=== PATIENT | male | born 1975 | race Caucasian/White ===

== ENCOUNTER 2017-10-14 10:30 | Outpatient (RCR) | payer MEDICAID, SELFPAY ==
--- NOTE | 2017-09-25 15:56 | PTTR_ITS ---
DATE: 09/25/17 SUBJECTIVE: Braulio reports he did fine after his last P.T. session. Continues to stay very busy outside of the clinic. He is expecting to have an extremely busy weekend with work and ball tournaments. Did request to skip the stationary bike today OBJECTIVE: Manual therapy: (50227n2). Mobs of the right patella as well as tibiofemoral joint mobs while in the supine position. Soft tissue stretching of the right hamstrings, hip flexors and quadriceps while in the Eulogio test position. TFM to the medial joint line and soft tissue stretching of the right IT band and piriformis musculature. LE distraction via leg pulls was also performed on the right while in supine. Therapeutic procedures (58303a2). * x See flow sheet: focus was on strengthening of the right LE and hip stabilizers. * Verbal and tactile cues were provided throughout today's session for proper positioning and isolation of specific muscles. * Did incorporate side lying clamshell as well as bridging with adductor squeeze while maintaining core stabilization. * * Ended with KT tape to the medial joint line utilizing X formation and applied cryotherapy x10 min. with leg resting on a wedge pillow at no charge. Direct treatment time: 50 min. Total treatment time: 60 min. SG/gc
--- NOTE | 2017-09-30 10:30 | PTTR_ITS ---
DATE: 09/30/17 SUBJECTIVE: Patient reports he played in a softball tournament this weekend and it did not bother his knee or ankle at all. He has no pain in the knee upon arrival. States he has been completing HEP plus more exercises at home. States he does both modified and forearm planks everyday. He states he didn t notice any difference with the kineseotape applied last session. He is feels like he is getting stronger. Has been having some lower back pain that is the worst in the morning when he first gets up. OBJECTIVE: Manual therapy: (83022a3). Performed right patellafemoral mobilizations all directions. Performed right hamstring, piriformis, ITB, and quad/hip flexor stretching in the modified Eulogio position. Therapeutic procedures ([id number]). [X] HEP review: Patient given red theraband for progression of ankle inversion, eversion, and DF strengthening. Assessed forearm plank technique. Cues needed to keep core in neutral position, making sure he doesn t let his lower back arch. [X] See flow sheet: Continued progression LE strengthening program incorporating proximal hip and core stabilization. [X] Provided skilled instruction in proper exercise performance: for proper body mechanics. [X] Provided skilled manual cues to facilitate proper muscle recruitment and/or movement pattern: Declined need for modalities post session. Direct treatment time: 50 minutes Total treatment time: 50 minutes Yamilet Gautam, SPT Karen Rosales, SHAHEEN
--- NOTE | 2017-10-02 11:00 | PTTR_ITS ---
DATE: 10/02/17 SUBJECTIVE: Patient reports his knee has been feeling good for about 7 days now. His pain is now mostly in his right ankle. Has been compliant with HEP. States he plans on continuing with the exercises we ve taught him here after PT discharge. OBJECTIVE: Continued with treatment after OUTSIDE SALES REPRESENTATIVE performed manual therapy. Therapeutic procedures (25789y1). [X] See flow sheet: Continued progressing LE strengthening and core stabilization program. [X] Provided skilled instruction in proper exercise performance: for proper body mechanics [X] Provided skilled manual cues to facilitate proper muscle recruitment and/or movement pattern: Direct treatment time: 30 minutes Total treatment time: 30 minutes Yamilet Gautam, SPT Karen Rosales,MPT
--- NOTE | 2017-10-02 13:34 | PTTR_ITS ---
DATE: 10/02/17 SUBJECTIVE: Braulio states that he is doing well. He offers no complaints to me today. OBJECTIVE: Manual therapy: (17617a5). mobilizations of right tib/fem jt including anterior and posterior glides, patella glides in all directions. Stretching of hamstrings, ITB and piriformis as well as hip flex/quads in modified Eulogio test position. LE distractions via leg pulls. Therapeutic procedures (52667q7). * x See flow sheet: for global LE strength and stabilizations. * x Provided skilled instruction in proper exercise performance: proper glut and core engagement. ended with cryo x 10 min. Direct treatment time: 35 min Total treatment time: 45 min
--- NOTE | 2017-10-07 13:53 | PTTR_ITS ---
DATE: 10/07/17 SUBJECTIVE: Braulio states that he has not noticed any changes in his knee. He indicated that he can work and play softball games without increased irritation , but notes a lack of improvement as well. He states that he notices weakness in right quad and questions if he can incorporate quad machine at the gym. OBJECTIVE: Manual therapy: ([id number]). mobilizations of right tib/fem jt including anterior and posterior glides, patella glides in all directions. stretching of hamstrings, ITB and hip flex/ quad in modified Eulogio test position. LE distractions via leg pulls. CFM of medial knee jt line and MCL region. Therapeutic procedures ([id number]). * x See flow sheet: global LE strength and hip stabilizations. * x Provided skilled instruction in proper exercise performance: for proper engagement of gluts and core. Progressed program with added resistance as well as quads and hamstring strengthening on machines. Declined cryo post session. Direct treatment time: 45 min Total treatment time: 45 min
--- NOTE | 2017-10-09 10:30 | PTTR_ITS ---
DATE: 10/09/17 SUBJECTIVE: Indicated he is definitely feeling stronger throughout his right side of the body, but knee pain is about the same. Seeing his doctor in a few weeks and wants to continue strengthening until then. OBJECTIVE: Manual therapy: (30504y8). Mobilization of right patella in all planes, tib-fem jt anterior and posterior glides, soft tissue stretching of hamstrings, IT bands and quads and hip flexors. Therapeutic procedures (97525m1). * x See flow sheet: Focus on core / hip stabilization, strengthening of right LE. Performed 20 minutes of wellness with assistive personnel. * x Provided skilled instruction in proper exercise performance * x Provided skilled manual cues to facilitate proper muscle recruitment and/ or movement pattern Declined need for cryotherapy at conclusion of session. Direct treatment time: 45 minutes Total treatment time: 45 minutes
--- NOTE | 2017-10-14 10:30 | PTTR_ITS ---
DATE: October 14, 2017 SUBJECTIVE: Braulio notes that PT has definitely been beneficial. He however continues to note right sided knee pain. He feels that the intensity is less. He feels he is stronger. He is noting significantly less ankle pain and overall does see improvements. However the knee continues to swelling after any recreational activity such as running or playing softball. Softball is now ended so he is interested to see how much better it will get by not having the symptom aggravator. He follows up with his PCP in early Oct and will look to seek ortho consult at that time. OBJECTIVE: Upon reassessment continues to present with medial joint line sensitivity of the right knee. Irritation with bounce home right knee. Mild irritation with Thesaly's. Negative patella compression. Presents with 140 degrees of knee flexion. Improved deep knee bend. However continued end range irritation with the right knee. Manual therapy: (19285a6) . Patellofemoral joint mobilization all planes. Soft tissue stretching to the right hamstring, ITB, piriformis, hip flexor in modified Eulogio test position and quadriceps in prone. Therapeutic procedures (32627s6). * X HEP review: With promotion of progression to [facility] upon return from [facility]. * X See flow sheet: Incorporated open and closed chain strength and core stabilization * X Provided skilled instruction in proper exercise performance: promoting body mechanics and set up of equipment. * X Provided skilled manual cues to facilitate proper muscle recruitment and/ or movement pattern: avoiding compensatory movements. * X Other: 30 minutes of Wellness portion of the program followed. Declined need of modality post session . At this time continued to present with possible medial internal derangement of the right knee. Ankle is doing much better with strength and stabilization. ROM improved. Strength increased. Continue to advance until MD consult in early Oct with plan for orthopedic consultation at that time. Patient is also in agreement with this plan. Direct treatment time: 30 minutes Total treatment time: 60 minutes
== END 2017-10-24 23:59 | disposition home or self-care (01) ==
LOC: PT 10:30
PROVIDERS: PCP Family Medicine; Referring Provider Family Medicine; Visit Provider Family Medicine
DX: G89.29 Other chronic pain (principal); M25.561 Pain in right knee
CPT/HCPCS: 97110; 97140

== ENCOUNTER 2017-12-12 01:31 | Outpatient (CLI) | payer MEDICAID, SELFPAY ==
--- NOTE | 2017-12-12 12:03 | DI.MRI_ITS ---
SYMPTOMS/DIAGNOSIS: RT KNEE PAIN, M25.569 RIGHT KNEE MRI: MRI examination of the knee was performed according to the usual protocol. No significant bony signal abnormality is seen. No gross abnormality of the articular cartilage identified. Cruciate ligaments appear intact. There is abnormal signal in the medial meniscus which may represent a nondisplaced tear. This is most suspicious in appearance on the proton density sagittal images and T 2 fat sat sagittal images. The lateral meniscus appears normal. No collateral ligament injury seen. CONCLUSION: Suspect nondisplaced medial meniscus tear as described above.
== END 2017-12-12 01:51 ==
PROVIDERS: PCP Family Medicine; Visit Provider Physician Assistant
DX: M25.561 Pain in right knee (principal); S83.241A Other tear of medial meniscus, current injury, right knee, initial encounter
CPT/HCPCS: 73721

== ENCOUNTER 2018-01-05 06:24 | Day surgery (SDC) | payer MEDICAID, SELFPAY ==
[2018-01-05] VITALS (8 sets, daily range): BP systolic 87–144; BP diastolic 43–75; PULSE 64–87; RESP 9–17; TEMP 36.1–36.7; O2SAT 93–99
[2018-01-05] MEDS: Lactated Ringers 1,000 ML 80 ML IV (07:24)
--- NOTE | 2018-01-05 08:44 | PDOC.DSDIS_ITS ---
Discharge Plan Disposition Patient Disposition: HOME Condition: Good Discharge Details Reason For Visit: TORN (R) MEDIAL MENISCUS Attending Provider: Suman Womack Primary Care Provider: Eulogio Tenorio Home Meds and New Rx's Prescriptions: New ibuprofen 800 mg tablet 800 mg PO TID Qty: 30 RF: 0 hydrocodone-acetaminophen 5-325 mg tablet 1 tab PO Q6H PRN (Reason: pain) Qty: 14 RF: 0 Continue cetirizine [Zyrtec] 10 mg tablet 10 mg PO DAILY PRN (Reason: allergy symptoms) RF: 0 multivitamin Capsule 1 cap PO QAM RF: 0 [id number] [Glucosamine Complex-MSM] Capsule 1 cap PO DAILY RF: 0 albuterol sulfate 90 mcg/actuation Hfa Aerosol Inhaler 2 puff INHALATION Q6H PRNRF: 0 Discharge Instructions Additional Instructions: Crutches to walk. May put as much weight on R leg as your knee discomfort allows. Discontinue crutches when you can step fully on R leg with only mild discomfort. Elevate R leg on 1-2 pillows as much as possible over next 2 days. Apply cryocuff to R knee 4-6 times/day for 1 hour each time to decrease pain and swelling. Remove dressings, shower, and get incisions wet after 48 hours. Leave incisions uncovered when they are dry and sealed. Take ibuprofen as prescribed 3 times/day for 10 days to decrease inflammation and swelling. Take hydrocodone for breakthrough pain. Outpatient physical therapy at [facility] on Fri or . for rehab R knee post-arthroscopic partial meniscectomy. Follow up in 's office in 2 weeks. Referrals: Suman Womack MD [ [facility] STAFF PHYSICIAN] - (F/U in 2 weeks) Equipment/Supplies: Partial Weight Bearing Crutches Activity:: Activity as Tolerated Remove Dressings/Wound Care:: 48 hours Shower/Bathe:: 48 hours Diet:: As Tolerated Discharge Orders Discharge Orders: Discharge Order (Routine); Ordered 01/05/18 Ordered By: Suman Womack DS: Diagnosis Discharge Diagnosis (1) Internal derangement of right knee: Start date: 01/05/18 Start time: 08:44 Status: Acute
--- NOTE | 2018-01-05 15:41 | ROE_ITS ---
DATE OF PROCEDURE: January 05, 2018 PREOPERATIVE DIAGNOSIS: Internal derangement right knee. POSTOPERATIVE DIAGNOSIS: Same due to torn right medial meniscus. PROCEDURE: Arthroscopy of the right knee with partial right medial meniscectomy and limited synovect shamir. ANESTHESIA: General. SURGEON: Suman Womack M.D. INDICATIONS: This is a 42-year-old white male with recurrent episodes of right knee pain and swellin g for over five years now. Clinical exam and imaging suggested a torn medial meniscus as the cause o f his continued pain, swelling and giving way of his right knee. Arthroscopy was recommended to conf irm the diagnosis and provide definitive treatment for his symptoms. The risks and complications of the procedure were explained to the patient in detail preoperatively. PROCEDURE: The patient was taken to the operating room on 01/05/18. He was placed supine on the ope rating table and a general anesthetic was administered. The right lower extremity was placed in the arthroscopic leg raymundo and the right knee was prepped and draped free in the usual sterile fashion. Arthroscopic portals were established. The right knee was inflated with normal saline solution usi ng the arthroscopy pump and then routine arthroscopic examination proceeded. Intraoperative photogra phs were obtained to document the findings. Upon entering the medial compartment he was found to have a complex tear of the posterior horn of the medial meniscus. The articular cartilage in the medial compartment was well preserved with no major injuries. The meniscal tear was resected using angled punch forceps and then the remaining rim was smoothed and contoured with a high radiofrequency electrocautery wand. At completion of the resectio n the remaining rim of the medial meniscus was probed with a right-angle probe and was fully stable. The intercondylar notch showed intact anterior and posterior cruciate ligaments. The lateral compartment showed normal lateral meniscus, stable to probing under direct vision, and no rmal articular cartilage in the lateral compartment. The suprapatellar pouch was clear. He had a band of hypertrophic synovium along the course of the me dial retinaculum where it was decreasing the volume of the medial gutter. It did not appear to be a true plica however. Using the high radiofrequency electrocautery wand I excised this hypertrophic sy novium, restoring the full volume in the medial gutter. Patellofemoral tracking was normal. 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 The trochlea was intact and undamaged. The suprapatellar pouch was clear. At this point the knee was copiously irrigated with saline solution using the arthroscopy pump until the outflow was clear. 20 cc's of 0.5% Marcaine with an epinephrine solution along with 4 mg of morp alicia were instilled into the right knee and all instruments were removed from the knee. The arthrosc opy portals were infiltrated with 0.5% Marcaine with an epinephrine solution and approximated with in terrupted #4-0 nylon sutures. Sterile dressings were applied followed by a light compressive dressin g to the right knee. The patient tolerated the procedure well. His anesthesia was reversed without complication. Blood l oss was minimal. He was discharged to recovery room in good condition. The patient was later discharged home from the Day Surgery Unit when fully recovered from his general anesthesia. He was given instructions to elevate his right knee on 1 to 2 pillows as much as possib le for the next 48 hours. He is to use crutches to walk, weightbearing as tolerated to the right kne e. He may discontinue the crutches as soon as he can step fully on his right leg with minimal pain. He is to use a CryoCuff to the right knee 4 to 6 times a day for an hour each time. He may remove h is dressings, shower and get his incisions wet after 48 hours. He can leave the incisions uncovered when they are dry and sealed. He will begin outpatient physical therapy on Friday or for rehab of right knee post-arthroscopic meniscectomy. He was given a prescription for inflammation of ibuprofen 800 mg p.o. t.i.d., thirty tabs and he has been given a prescription for breakthrough pain of Hydrocodone with APAP 5/325 one tablet every six hours p.r.n. for breakthrough pain. He will fol low-up in my office in two weeks.
== END 2018-01-05 10:37 | disposition home or self-care (01) ==
PROVIDERS: PCP Family Medicine; Visit Provider Orthopaedic Surgery
PROC: (CPT 29870; principal; 2018-01-05 07:30)
DX: M23.221 Derangement of posterior horn of medial meniscus due to old tear or injury, right knee (principal); M65.88 Other synovitis and tenosynovitis, other site; M25.561 Pain in right knee; M25.461 Effusion, right knee
CPT/HCPCS: 29881; J0690; J1100; J1885; J2250; J2405

== ENCOUNTER 2021-02-07 01:19 | Outpatient (CLI) | payer MEDICAID, SELFPAY ==
[2021-02-07 08:58] LABS: HCT 42.7 % (40.0-50.0); HGB 13.9 g/dL (13.5-17.5); MCH 31.6 pg (27.0-33.0); MCHC 32.6 % (32.0-36.0); MPV 9.3 fL (8.0-11.0); Platelet Count 221 10^3/uL (130-400); WBC 9.47 10^3/uL (4.4-10.8)
[2021-02-07 09:06] LABS: Hemoglobin A1C 5.7 % (<5.7)
[2021-02-07 09:37] LABS: ALT 29 U/L (16-63); AST 14 U/L (15-37); Albumin 3.4 g/dL (3.4-5.0); Alkaline Phosphatase 60 U/L (46-116); Anion Gap 6.6 mmol/L (3-11); BUN 20 mg/dL (7-18); Bilirubin, Total 0.2 mg/dL (0.2-1.0); CO2 29.4 mmol/L (21.0-32.0); CREATININE 0.9 mg/dL (0.70-1.30); Calcium 8.5 mg/dL (8.5-10.1); Calculated LDL 106 mg/dL (<100); Chloride 104 mmol/L (98-107); Cholesterol 167 mg/dL (<200); Glucose 94 mg/dL (74-106); HDL Cholesterol 45 mg/dL (40-60); Potassium 4.2 mmol/L (3.5-5.1); Sodium 140 mmol/L (136-145); TSH (W/Ref FT4) 0.38 uIU/mL (0.36-3.74); Total Protein 6.7 g/dL (6.4-8.2); Triglyceride 83 mg/dL (<150)
[2021-02-08 10:26] LABS: Hepatitis C Ab w Rflx HCV PCR Negative (Negative)
[2021-02-08 10:50] LABS: HIV-1/2 Ag & Ab Screen Negative (Negative)
== END 2021-02-07 01:20 | disposition home or self-care (01) ==
LOC: LBO 01:19
PROVIDERS: PCP Nurse Practitioner; Visit Provider Nurse Practitioner
DX: R73.01 Impaired fasting glucose (principal); I10 Essential (primary) hypertension; F41.9 Anxiety disorder, unspecified; Z13.220 Encounter for screening for lipoid disorders; Z11.59 Encounter for screening for other viral diseases; Z11.4 Encounter for screening for human immunodeficiency virus [HIV]
CPT/HCPCS: 36415; 80053; 80061; 85027; 86803; 87389; 83036; 84443

== ENCOUNTER 2022-02-27 05:00 | Outpatient (CLI) | payer MEDICAID, SELFPAY ==
[2022-02-27 07:22] LABS: Abs Immature Grans 0.02 10^3/uL (0.0-0.06); Absolute Basophil Count 0.05 10^3/uL (0.0-0.2); Absolute Eosinophil Count 0.47 10^3/uL (0.0-0.7); Absolute Lymphocyte Count 3.91 10^3/uL (1.2-3.4); Absolute Monocyte Count 0.78 10^3/uL (0.1-0.8); Absolute Neutrophil Count 2.98 10^3/uL (1.2-6.7); Basophils % 0.6; Eosinophils % 5.7; HCT 47.3 % (40.0-50.0); HGB 15.8 g/dL (13.5-17.5); Immature Grans % 0.2; Lymphocytes % 47.6; MCH 32.4 pg (27.0-33.0); MCHC 33.4 % (32.0-36.0); MCV 97 fL (80-95); MPV 9.2 fL (8.0-11.0); Monocytes % 9.5; Neutrophils % 36.4; Platelet Count 209 10^3/uL (130-400); RBC 4.88 10^6/uL (4.36-5.78); RDW-SD 46.8 fL; WBC 8.21 10^3/uL (4.4-10.8)
[2022-02-27 08:06] LABS: ALT 24 U/L (16-63); AST 17 U/L (15-37); Albumin 4.1 g/dL (3.4-5.0); Alkaline Phosphatase 58 U/L (46-116); BUN 25 mg/dL (7-18); Bilirubin, Total 0.5 mg/dL (0.2-1.0); CREATININE 1.3 mg/dL (0.70-1.30); Calcium 9.2 mg/dL (8.5-10.1); Calculated LDL 133 mg/dL (<100); Chloride 104 mmol/L (98-107); Cholesterol 203 mg/dL (<200); Estimated GFR 67.76 (mL/min/1.73m2); Glucose 99 mg/dL (74-106); HDL Cholesterol 57 mg/dL (40-60); Sodium 141 mmol/L (136-145); TSH (W/Ref FT4) 0.65 uIU/mL (0.36-3.74); Total Protein 7.8 g/dL (6.4-8.2); Triglyceride 67 mg/dL (<150)
== END 2022-02-27 05:01 | disposition home or self-care (01) ==
LOC: LBO 05:00
PROVIDERS: Absent Provider Nurse Practitioner; PCP Nurse Practitioner; Referring Provider Nurse Practitioner; Visit Provider Nurse Practitioner
DX: R79.89 Other specified abnormal findings of blood chemistry (principal); E78.89 Other lipoprotein metabolism disorders; F41.8 Other specified anxiety disorders
CPT/HCPCS: 36415; 80053; 80061; 84443; 85025

== ENCOUNTER 2022-07-18 06:10 | Day surgery (SDC) | payer MEDICAID, SELFPAY ==
--- NOTE | 2022-07-17 17:56 | PDOC.DSDIS_ITS ---
Date of service: 07/18/22 Time of Service: 07:52 Discharge Plan Disposition Condition: Good Discharge Details Reason For Visit: Colonoscopy Attending Provider: Cornel Davies Primary Care Provider: Kiera Cortés Home Meds and New Rx's Prescriptions: Continued ascorbate calcium (vitamin C) 500 mg tablet 500 mg PO DAILY PRN albuterol sulfate 90 mcg/actuation HFA aerosol inhaler 2 puff INHALATION Q6H PRN (Reason: shortness of breath or wheezing) Qty: 8.5 12RF trazodone 50 mg tablet See Rx Instructions PO QHS PRN (Reason: sleep) Qty: 90 3RF Rx Instructions: 1-2 tabs orally every day at bedtime PRN; escitalopram oxalate 10 mg tablet 10 mg PO DAILY Qty: 90 1RF bupropion HCl [Wellbutrin XL] 300 mg tablet extended release 24 hr 300 mg PO QAM Qty: 90 3RF cetirizine [Zyrtec] 10 mg tablet 10 mg PO DAILY PRN (Reason: allergy symptoms) Qty: 90 3RF Discontinued polyethylene glycol 3350 17 gram/dose powder 238 g PO ONCE Qty: 238 0RF Rx Instructions: take per colonoscopy instructions bisacodyl [Dulcolax (bisacodyl)] 5 mg tablet,delayed release (DR/EC) 5 mg PO ONCE Qty: 4 0RF Rx Instructions: take per colonoscopy instructions Discharge Instructions Additional Instructions: Braulio, we were able to complete your colonoscopy today without any difficulty. Your anal column and rectum appeared totally normal. I did find 1 polyp around 30 cm from your anus. I removed it completely. There were no worrisome features to the naked eye. I will be in touch when I have the pathology report of the nature of the polyp. 1. If tolerated, consume a soft, low fiber diet for 1-2 days. 2. Do not drive, drink alcohol, operate machinery, make critical decisions, or do activities that require coordination or balance for 24 hours. 3. Because air was put into your colon during the procedure, expelling air from your rectum (passing gas or farting) is normal. 4. You may not have a bowel movement for 1-3 days because of the colonoscopy pr ep. This is normal. 5. Go directly to the emergency room if you notice any of the following: Develop chills (warm to touch), or if you have a thermometer and your temperature is above 101 Difficulty breathing or difficultly swallowing Persistent vomiting Severe abdominal pain, other than gas cramps Severe chest pain Black, tarry stools Any bleeding ? exceeding one tablespoon 6. Call your physician if the site where your intravenous was started becomes red, swollen, painful, and warm to touch. 7. Your physician has reviewed your pre-procedure medications. Please continue to take those medications as previously ordered. You will be given specific information/education regarding any changes to your medications before leaving. Activity:: Activity as Tolerated Diet:: As Tolerated DS: Diagnosis Discharge Diagnosis (1) Colon cancer screening: Status: Acute Asessment and Plan: I will follow-up on the pathology report
--- NOTE | 2022-07-17 17:58 | W.COLOREPORT ---
Date of service: 07/18/22 Time of Service: 07:53 Colonoscopy Report Date of procedure: 07/18/22 Pre-op diagnosis general: Screening colonoscopy Post-op diagnosis procedure note: other (Colon polyp) Procedure: Colonoscopy Surgeon: Cornel Davies Anesthesia Type: General:No Airway Estimated blood loss (mL): 5 Pathology: other (Polyp at 30 cm) Complications: None Disposition: same day Indications: Braulio is a 46 year old man here for a screening colonoscopy Prep: Miralax/Dulcolax Procedure Start Time: 07:26 Procedure End Time: 07:40 Retraction Time: 11 Findings: Colon polyp at 30 cm Procedure Description: After the induction of monitored anesthetic care, and with the patient in left lateral decubitus position, I began by performing an external anorectal exam.? Perineum and skin were normal, as was the anal verge.? There was no evidence of external hemorrhoids.? Next, I performed a digital rectal exam.? I did not appreciate any abnormal findings.? Next, I advanced a colonoscope into the rectal vault.? I performed retroflexion.? This appeared normal.? Using insufflation, I then advanced the colonoscope beyond the rectal folds and into the sigmoid colon before advancing towards the cecum.? The quality of the prep was excellent.? The scope was noted to be in the cecum by identification of the ileocecal valve and appendiceal orifice.? I then began withdrawing the colonoscope using repeated irrigation as necessary for full evaluation of the colonic mucosa. Around 30 cm from the anal verge I identified a 0.5 cm polyp. ?It appeared pedunculated in character. ?I was able to remove this with a cold snare polypectomy. ?I examined the site, and there was minimal bleeding. ?Once this was completed, I continued to withdraw the scope and examine the remainder of the colonic mucosa.?Once the scope was withdrawn to the level of the rectum, great care was taken to examine portions of the rectal folds.? Finally, the scope was withdrawn and the patient was brought to the same-day surgery recovery unit as the anesthetic wore off. ?The findings and instructions were shared with the patient prior to discharge.
[2022-07-18 06:15] VITALS: BP 121/81; PULSE 82; RESP 18; TEMP 36.8; O2SAT 93
[2022-07-18 06:41] VITALS: BMI 22.6
--- NOTE | 2022-07-18 06:41 | W.ANESPRE ---
General Info Date of Service Date Performed: 07/18/22 Height: 5 ft 10 in Weight: 71.4 kg Body Mass Index (BMI): 22.6 Surgical Procedure: Operation Date: 07/18/22 07:35 Proposed Procedure Side Surgeon aydee Davies MD Meds Allergies and Home Medications Allergies Allergy/AdvReac Type Severity Reaction Status Date / Time No Known Allergies Allergy Verified 07/18/22 06:25 Home Medication Medication Instructions Recorded ascorbate calcium (vitamin C) 500 500 mg PO DAILY PRN 08/13/21 mg tablet bupropion HCl 300 mg 24 hr tablet, 300 mg PO QAM #90 tabs 11/22/21 extended release (Wellbutrin XL) cetirizine 10 mg tablet (Zyrtec) 10 mg PO DAILY PRN allergy 11/22/21 symptoms #90 tabs albuterol sulfate 90 mcg/actuation 2 puff inhalation Q6H PRN 02/13/22 aerosol inhaler shortness of breath or wheezing #8.5 grams trazodone 50 mg tablet See Rx Instructions PO QHS PRN 02/13/22 sleep #90 tabs escitalopram oxalate 10 mg tablet 10 mg PO DAILY #90 tabs 06/18/22 Current Visit Medications: Current Medications Generic Name Dose Route Start Last Admin Trade Name Freq PRN Reason Stop Dose Admin Hyoscyamine Sulfate 0.125 mg 07/17/22 18:00 Hyoscyamine 0.125 Mg Sl/Oral/Chew SL 08/16/22 17:59 DIRECTED PRN Ringer's Solution 1,000 mls @ 80 mls/hr 07/18/22 06:00 IV 08/16/22 23:59 IN[facility]ION [facility] IV Miscellaneous Supplies 1 each 07/18/22 06:00 Iv Access IV 08/16/22 23:59 DIRECTED SALAZAR Ondansetron HCl 4 mg 07/17/22 18:00 Ondansetron 4 Mg/2 Ml Vial IVP 08/16/22 17:59 Q4H PRN PRN Nausea / Vomiting Sodium Chloride 0 ml 07/18/22 06:00 Normal Saline Flush 10 Ml Syr IV 08/16/22 23:59 PRN PRN Sodium Chloride 0 ml 07/18/22 06:00 Normal Saline 10 Ml Vial IJ 08/16/22 23:59 DIRECTED PRN Sterile Water 0 ml 07/18/22 06:00 Water,Injection,Sterile 10 Ml Vial IJ 08/16/22 23:59 DIRECTED PRN PFSH Active Problems Active Problems: Problem Status Onset Code Colon cancer screening Z12.11 Anxiety 07/01/17 F41.9 Asthma 07/01/17 J45.909 Internal derangement of right knee M23.91 Medical History Medical History Comments:: pt states no complications but that he wakes up and is alert quite quickly after previous anesthesia with dental work Surgical History Surgical History (Updated 07/17/22 @ 10:26 by Claudio Syed) S/P right knee arthroscopy Tobacco Smoking/Tobacco Use Status: Current every day Tobacco Type: e-cigarettes Second hand exposure: No Alcohol Alcohol Intake: current Alcohol intake frequency: a few times a week Alcohol type: beer Substance Use Substance use: Daily Substance use type: marijuana Details: alcohol t-3 marijuana t-1 (smokes) Vital Signs and Lab Results Vital Signs Most Recent Vital Signs in EMR: Most Recent Vital Signs Temp Pulse Resp BP Pulse Ox 36.8 C 82 18 121/81 93 07/18/22 06:15 07/18/22 06:15 07/18/22 06:15 07/18/22 06:15 07/18/22 06:15 Lab Results Blood Type / Crossmatch: No Data to Display Complete Blood Count: No Data to Display Complete Metabolic Panel: No Data to Display Liver Function Panel: No Data to Display Coagulation Panel: No Data to Display Cardiac Panel: No Data to Display Arterial Blood Gas: No Data to Display Venous Blood Gas: No Data to Display Pancreas Panel: No Data to Display Thyroid Panel: No Data to Display Infectious Disease: No Data to Display Blood Cultures: No Data to Display Toxicology Panel: No Data to Display Anesthesia Assessment and Plan Anesthesia History Personal History: No History of Anesthesia Complications Family History: No Family History of Anesthesia Complications Exercise Tolerance Exercise Tolerance: Metabolic Equivalents>4 Pertinent Negatives Pertinent Negatives: No Symptoms of GERD, No Major Cardiovascular Symptoms or Complaints and No History of CVA/TIA Cardiac & Pulmonary Exam Cardiac Exam: Normal S1/S2 Heart Sounds Pulmonary Exam: Clear Bilateral Breath Sounds Implantable Cardiac Device Does patient have a Pacemaker or an ICD?: No Airway Exam Known Difficult Airway: No Mallampati Class: 2 Mouth Opening: Normal (> 3cm) Thyromental Distance: Greater than 3 cm Neck Range of Motion: Full ROM Neck Circumference: Normal Teeth Condition: Generalized Poor Dentition and Dental Caries ASA Classification ASA Score: ASA 2 Emergency Case?: No NPO Status NPO Status: NPO Clears >2 hours, Solids >8 hours Anesthesia Plan Resuscitation Status: Full Code Anesthesia Technique: General Anesthesia Airway Planned: Natural Airway Monitors Used: Standard Monitors
[2022-07-18] MEDS: Lactated Ringers 1,000 ML 80 ML IV (06:54)
--- NOTE | 2022-07-18 07:38 | BOWEL_PTH ---
PATIENT: Braulio Mello LOC: [facility] U#:[id number] AGE/SX: 46/M ROOM: RE07/18/[address]: Cornel Davies MD : [id number] BED: DIS: 07/18/2022 SPEC #: [id number] RECD: 07/18/22 12:53 STATUS: CHANTELLE RE #: [id number] AMOS: 07/18/22 07:[address]: Cornel Davies DEPT: Surgical Specimen RECD BY: Sharon Moran ENTERED: 07/18/22 12:53 SP TYPE: Bowel OTHR DR: Kiera Cortés APRN Tissues: 1 - BIOPSY BOWEL Procedures: GROSS AND MICRO LEVEL 4 Comments: [id number]
[2022-07-18 07:46] VITALS: BP 114/70; PULSE 89; RESP 18; TEMP 36.6; O2SAT 92
[2022-07-18 08:06] VITALS: BP 94/67; PULSE 76; RESP 18; TEMP 36.6; O2SAT 95
--- NOTE | 2022-07-18 08:21 | W.ANESPOSTOP ---
Postoperative Evaluation Date, Time and Location Date Performed: 07/18/22 Time Performed: 07:50 Patient Location: Day Surgery Unit Vital Signs Most Recent Imported Vital Signs: Most Recent Vital Signs Temp Pulse Resp BP Pulse Ox 36.6 C 76 18 94/67 L 95 07/18/22 08:06 07/18/22 08:06 07/18/22 08:06 07/18/22 08:06 07/18/22 08:06 Pain Score Most Recent Pain Score: Most Recent Pain Score Pain Level 0 07/18/22 08:06 Assessment Mental Status: Awake (Alert & Oriented to Patient Baseline) Airway and Respiratory Function: Patent airway with normal (patient baseline) respiratory exam Cardiovascular Function: Hemodynamically Stable Hydration Status: Adequately Hydrated Nausea & Vomiting: No Nausea or Vomiting Pain: Pt. Denies Any Pain Peripheral Nerve Block: Patient did not receive a nerve block
--- NOTE | 2022-07-18 08:24 | W.ANESPOSTOP ---
Postoperative Evaluation Date, Time and Location Date Performed: 07/18/22 Time Performed: 08:24 Patient Location: Day Surgery Unit Vital Signs Most Recent Imported Vital Signs: Most Recent Vital Signs Temp Pulse Resp BP Pulse Ox 36.6 C 76 18 94/67 L 95 07/18/22 08:06 07/18/22 08:06 07/18/22 08:06 07/18/22 08:06 07/18/22 08:06 Most Recent Vital Signs Temp Pulse Resp BP Pulse Ox 36.6 C 76 18 94/67 L 95 07/18/22 08:06 07/18/22 08:06 07/18/22 08:06 07/18/22 08:06 07/18/22 08:06 Pain Score Most Recent Pain Score: Most Recent Pain Score Pain Level 0 07/18/22 08:06 Assessment Mental Status: Awake (Alert & Oriented to Patient Baseline) Airway and Respiratory Function: Patent airway with normal (patient baseline) respiratory exam Cardiovascular Function: Hemodynamically Stable Hydration Status: Adequately Hydrated Nausea & Vomiting: No Nausea or Vomiting Pain: Pt. Denies Any Pain Peripheral Nerve Block: Patient did not receive a nerve block
== END 2022-07-18 08:21 | disposition home or self-care (01) ==
PROVIDERS: PCP Nurse Practitioner; Visit Provider Surgery
PROC: 0DJD8ZZ Inspection of Lower Intestinal Tract, Via Natural or Artificial Opening Endoscopic (ICD-10-PCS; CPT 45378; principal; 2022-07-18 07:30)
DX: Z12.11 Encounter for screening for malignant neoplasm of colon (principal); D12.5 Benign neoplasm of sigmoid colon
CPT/HCPCS: 45385; 88305

== ENCOUNTER 2023-04-01 04:42 | Outpatient (CLI) | payer MEDICAID, SELFPAY ==
[2023-04-01 08:39] LABS: ALT 29 U/L (16-63); AST 16 U/L (15-37); Albumin 3.4 g/dL (3.4-5.0); Alkaline Phosphatase 45 U/L (46-116); Anion Gap 4.6 mmol/L (3-11); BUN 17 mg/dL (7-18); Bilirubin, Total 0.2 mg/dL (0.2-1.0); CO2 30.4 mmol/L (21.0-32.0); Calcium 8.7 mg/dL (8.5-10.1); Calculated LDL 115 mg/dL (<100); Chloride 106 mmol/L (98-107); Cholesterol 192 mg/dL (<200); Estimated GFR 92.26 (mL/min/1.73m2); Glucose 101 mg/dL (74-106); HDL Cholesterol 51 mg/dL (40-60); Potassium 4.3 mmol/L (3.5-5.1); Sodium 141 mmol/L (136-145); Total Protein 7.1 g/dL (6.4-8.2); Triglyceride 131 mg/dL (<150)
== END 2023-04-01 04:43 | disposition home or self-care (01) ==
LOC: LBO 04:42
PROVIDERS: PCP Nurse Practitioner; Referring Provider Nurse Practitioner; Visit Provider Nurse Practitioner
DX: E78.5 Hyperlipidemia, unspecified (principal)
CPT/HCPCS: 36415; 80053; 80061

== ENCOUNTER 2024-04-13 04:35 | Outpatient (CLI) | payer MEDICAID, SELFPAY ==
[2024-04-13 11:31] LABS: HCT 44.3 % (40.0-50.0); HGB 15.1 g/dL (13.5-17.5); MCH 32.7 pg (27.0-33.0); MCHC 34.1 % (32.0-36.0); MCV 96 fL (80-95); MPV 8.8 fL (8.0-11.0); Platelet Count 200 10^3/uL (130-400); RBC 4.62 10^6/uL (4.36-5.78); RDW 13.7 % (11.8-14.1); RDW-SD 48.5 fL; WBC 6.44 10^3/uL (4.4-10.8)
[2024-04-13 13:27] LABS: ALT 34 U/L (16-63); AST 25 U/L (15-37); Albumin 3.7 g/dL (3.4-5.0); Alkaline Phosphatase 70 U/L (46-116); Anion Gap 4.6 mmol/L (3-11); BUN 16 mg/dL (7-18); Bilirubin, Total 0.36 mg/dL (0.2-1.0); CO2 31.4 mmol/L (21.0-32.0); Calcium 9.1 mg/dL (8.5-10.1); Calculated LDL 117 mg/dL (<100); Chloride 103 mmol/L (98-107); Cholesterol 188 mg/dL (<200); Estimated GFR 91.69 (mL/min/1.73m2); Glucose 98 mg/dL (74-106); HDL Cholesterol 59 mg/dL (40-60); Potassium 4.7 mmol/L (3.5-5.1); Sodium 139 mmol/L (136-145); TSH (W/Ref FT4) 0.36 uIU/mL (0.36-3.74); Total Protein 7.8 g/dL (6.4-8.2); Triglyceride 64 mg/dL (<150)
== END 2024-04-13 04:36 | disposition home or self-care (01) ==
PROVIDERS: PCP Nurse Practitioner; Visit Provider Nurse Practitioner
DX: Z13.220 Encounter for screening for lipoid disorders (principal); R63.4 Abnormal weight loss
CPT/HCPCS: 36415; 80053; 80061; 85027; 84443